=== PATIENT | female | born 2000 | race African-American/Black ===

== ENCOUNTER 2024-04-27 10:27 | Emergency (ER) | payer MEDICAID ==
[~2024-04-27] VITALS: Ht 165.1 cm; Wt 60.0 kg
[2024-04-27 10:32] VITALS: TEMP 98.3; O2SAT 100
[2024-04-27 11:15] VITALS: BP 108/55; PULSE 65; RESP 20
[2024-04-27] MEDS: DEXAMETHASONE 10 MG/ML VIAL PO ONE (11:15)
[2024-04-27] MEDS: IBUPROFEN 600MG TABLET PO ONE (11:15)
== END 2024-04-27 12:25 | disposition left against medical advice (07) ==
LOC: ER 10:43
DX: J02.9 Acute pharyngitis, unspecified (principal); Z53.21 Procedure and treatment not carried out due to patient leaving prior to being seen by health care provider
CPT/HCPCS: 99281; J1100